=== PATIENT | male | born 1955 | race Caucasian/White ===

== ENCOUNTER → 2017-05-21 | Outpatient (CLI) | payer OTHER ==
[~2017-05-21] MED LIST: ALPRAZOLAM2 MG PO; AMIODARONE HCL200 MG PO; AMLODIPINE BESYL5 MG PO; LEVOTHYROXINE50 MCG PO; LOSARTAN POTASS50 MG PO; METOPROLOL SUCC25 MG PO; NORCO 7.5-3251 EACH PO
--- NOTE | 2017-05-21 14:18 | Diagnostic Imaging Report ---
PROCEDURE: C-SPINE AP AND LAT WITH FLEX AND EXT COMPARISON: Cervical spine x-rays 04/24/17. INDICATIONS: CERVICAL FUSION EVALUATION FINDINGS: C1 through C7 are visualized on the lateral view. The patient is status post C5-6 anterior cervical discectomy and fusion. The hardware is intact and stable in position without surrounding lucency to suggest loosening. The vertebral body heights are symmetric. Disc space narrowing and endplate osteophytic lipping at the C3-4 is stable. Small anterior, inferior osteophyte at C4 is stable. The cervical spine is diffusely straightened on neutral position. There is no evidence of listhesis on flexion or extension. The facets and spinous processes are normally aligned. No prevertebral soft tissue swelling. Alignment is maintained on AP image. Skull base and upper chest are unremarkable. CONCLUSION: Stable postoperative changes from C5-6 ACDF. No motion with flexion or extension. Dictated by: Katt De Dios M.D. on 05/21/2017 at 14:26 Electronically approved by: Katt De Dios M.D. on 05/21/2017 at 14:26
== END ==
LOC: RAD 12:43
PROVIDERS: ATTEND Neurological Surgery
DX: M50.20 Other cervical disc displacement, unspecified cervical region (principal); Z98.1 Arthrodesis status
CPT/HCPCS: 72050

== ENCOUNTER → 2017-11-20 | Outpatient (CLI) | payer OTHER ==
--- NOTE | 2017-11-20 12:30 | Diagnostic Imaging Report ---
PROCEDURE:C-SPINE AP AND LAT WITH FLEX AND EXT COMPARISON:Patients [facility], DX, C-SPINE 2 VIEWS AP \T\ LATERAL, 04/24/2017, 5:54. Patients [facility], DX, SPINE CERVICAL AP\T\LAT FLEX\T\EXT, 05/21/2017, 13:26. INDICATIONS:CERVICAL DISC HERNIATION FINDINGS: Cervical vertebral bodies are visualized from C1-C7. There is mild diffuse straightening of the cervical spine. Anterior cervical discectomy and fusion hardware at C5-6 is stable without fracture or loosening. There is retrolisthesis of C3 on C4 of approximately 2 mm. This persists with extension and reduces completely with flexion. There is retrolisthesis of C4 on C5 by approximately 1.5 mm with extension that reduces with flexion. No listhesis on neutral position. Mild disc space narrowing of C3-4 with endplate osteophytosis is stable. The facets and spinous processes are normally aligned. No prevertebral soft tissue swelling. Alignment is maintained on AP image. Skull base and upper chest are unremarkable. CONCLUSION: 1. 2 mm of retrolisthesis of C3 on C4 reduces with flexion and is static with extension. 2. 1.5 mm of retrolisthesis of C4 on C5 with extension reduces with flexion and is not visible on neutral position. 3. Stable postoperative appearance at C5-6. Dictated by: Katt De Dios M.D. on 11/20/2017 at 12:34 Electronically approved by: Katt De Dios M.D. on 11/20/2017 at 12:34
== END ==
LOC: RAD 10:17
PROVIDERS: ATTEND Neurological Surgery
DX: M50.20 Other cervical disc displacement, unspecified cervical region (principal); Z98.1 Arthrodesis status
CPT/HCPCS: 72050